=== PATIENT | female | born 1955 | race Caucasian/White ===

== ENCOUNTER → 2023-11-22 14:51 | Outpatient (REF) | payer BC, SELFPAY | LOC: HWWDC 14:51 | PROVIDERS: ATTENDING PHYSICIAN Nurse Practitioner | DX: Z12.31 Encounter for screening mammogram for malignant neoplasm of breast (principal) | CPT/HCPCS: 77063; 77067 ==

== ENCOUNTER → 2024-01-10 15:10 | Outpatient (REF) | payer BC, SELFPAY | LOC: HWRAD 15:10 | PROVIDERS: ATTENDING PHYSICIAN Internal Medicine; FAMILY PHYSICIAN Nurse Practitioner Adult Health | DX: R19.8 Other specified symptoms and signs involving the digestive system and abdomen (principal); R15.9 Full incontinence of feces; R15.2 Fecal urgency | CPT/HCPCS: 74019 ==

== ENCOUNTER → 2024-01-30 13:02 | Outpatient (REF) | payer BC, SELFPAY | LOC: HWRAD 13:02 | PROVIDERS: ATTENDING PHYSICIAN Nurse Practitioner; FAMILY PHYSICIAN Nurse Practitioner Adult Health | DX: Z13.820 Encounter for screening for osteoporosis (principal) | CPT/HCPCS: 77080 ==

== ENCOUNTER → 2024-02-06 06:28 | Day surgery (SDC) | payer BC, SELFPAY | LOC: GI 06:28 | PROVIDERS: ATTENDING PHYSICIAN Internal Medicine | DX: Z12.11 Encounter for screening for malignant neoplasm of colon (principal); K64.4 Residual hemorrhoidal skin tags; K57.30 Diverticulosis of large intestine without perforation or abscess without bleeding; K64.8 Other hemorrhoids; D12.2 Benign neoplasm of ascending colon; D12.3 Benign neoplasm of transverse colon; K62.1 Rectal polyp; K63.5 Polyp of colon | CPT/HCPCS: 45385; 45380; 88305 ==

== ENCOUNTER → 2024-05-13 07:19 | Outpatient (REF) | payer BC, SELFPAY | LOC: HWRAD 07:19 | PROVIDERS: ATTENDING PHYSICIAN Internal Medicine; FAMILY PHYSICIAN Nurse Practitioner Adult Health | DX: R10.13 Epigastric pain (principal); R11.0 Nausea | CPT/HCPCS: 76700 ==

== ENCOUNTER 2024-05-15 06:25 | Day surgery (SDC) | payer BC, SELFPAY | END 2024-05-15 12:48 | disposition home or self-care (01) | LOC: GI 06:25 | PROVIDERS: ATTENDING PHYSICIAN Internal Medicine | DX: K20.0 Eosinophilic esophagitis (principal); K29.70 Gastritis, unspecified, without bleeding; K29.50 Unspecified chronic gastritis without bleeding; K22.89 Other specified disease of esophagus; R10.13 Epigastric pain; K30 Functional dyspepsia; R11.0 Nausea; K44.9 Diaphragmatic hernia without obstruction or gangrene | CPT/HCPCS: 43239; 88305; 88342 ==

== ENCOUNTER 2024-07-24 06:25 | Day surgery (SDC) | payer BC, SELFPAY | END 2024-07-24 10:13 | disposition home or self-care (01) | LOC: GI 06:25 | PROVIDERS: ATTENDING PHYSICIAN Internal Medicine | DX: K29.70 Gastritis, unspecified, without bleeding (principal); K44.9 Diaphragmatic hernia without obstruction or gangrene; K22.89 Other specified disease of esophagus; K31.7 Polyp of stomach and duodenum; K31.89 Other diseases of stomach and duodenum; K30 Functional dyspepsia; Z87.11 Personal history of peptic ulcer disease | CPT/HCPCS: 43239; 88305 ==

== ENCOUNTER → 2025-01-04 10:28 | Outpatient (REF) | payer BC, SELFPAY | LOC: HWRAD 10:28 | PROVIDERS: ATTENDING PHYSICIAN Nurse Practitioner Adult Health | DX: Z87.891 Personal history of nicotine dependence (principal) | CPT/HCPCS: 71271 ==

== ENCOUNTER → 2025-01-26 08:32 | Outpatient (REF) | payer BC, SELFPAY | LOC: RSP 08:32 | PROVIDERS: ATTENDING PHYSICIAN Nurse Practitioner Adult Health | DX: J43.9 Emphysema, unspecified (principal) | CPT/HCPCS: 94010 ==

== ENCOUNTER → 2025-02-09 13:40 | Outpatient (REF) | payer BC, SELFPAY | LOC: HWWDC 13:40 | PROVIDERS: ATTENDING PHYSICIAN Nurse Practitioner Adult Health | DX: Z12.31 Encounter for screening mammogram for malignant neoplasm of breast (principal) | CPT/HCPCS: 77063; 77067 ==